=== PATIENT | female | born 1975 | race Caucasian/White ===

== ENCOUNTER → 2018-03-29 12:56 | Outpatient (CLI) | payer BC, SELFPAY ==
[2018-04-02 10:20] LABS: HPV Reflexed? NOT INDICATED
== END ==
PROVIDERS: Visit Provider Obstetrics & Gynecology
DX: Z12.4 Encounter for screening for malignant neoplasm of cervix (principal)
CPT/HCPCS: 88175; G0145

== ENCOUNTER → 2018-04-03 13:51 | Outpatient (CLI) | payer BC, SELFPAY ==
--- NOTE | 2018-04-03 13:59 | BI_ITS ---
MAMMOGRAPHY - BILATERAL DIAGNOSTIC REASON FOR EXAM: Female, 43 years old. 2-3 week history of left breast lump. PERTINENT HISTORY: Non-contributory. TECHNIQUE: Digital bilateral breast esmer (3D mammographic acquisition) in the CC and MLO projections. 2-D mediolateral oblique (MLO) and craniocaudad (CC) views of both breasts were obtained. CAD: Full Field Digital Mammography with Computer Added Detection was performed. COMPARISON: None. Baseline examination. FINDINGS: Breast Composition: The breasts are heterogeneously dense, which may obscure small masses. There are no dominant masses or suspicious calcifications. Scattered benign-appearing bilateral calcifications. No other significant abnormalities are identified. BI/DIAG MAMM W/CAD, BILAT IMPRESSION: Negative diagnostic mammogram. With the patient's history of a palpable abnormality in the deep inferior medial portion of the left breast, correlation with ultrasound is recommended. ASSESSMENT CATEGORY: BIRADS Category 0: Incomplete. Need additional imaging evaluation. A letter regarding these results will be sent to the patient by the facility within 30 days. Approximately 10% of breast cancers are not detected by mammography. A normal mammogram should not delay biopsy of a clinically suspicious abnormality. Electronically Signed: Gus Stevens MD at 8:17 EDT Tel [phone], Service support ,
--- NOTE | 2018-04-03 13:59 | US_ITS ---
STUDY: ULTRASOUND BREAST - LEFT REASON FOR EXAM: Female, 43 years old. Palpable abnormality in the left breast. TECHNIQUE: Axial and longitudinal images of the LEFT breast were performed with a high resolution ultrasound transducer. COMPARISON: Comparison is made with prior mammogram done earlier in the day. FINDINGS: LEFT Breast: The inferior medial quadrant of the left breast was examined by ultrasound. There is a homogeneous fibro-glandular tissue. No sonographic abnormality is seen. US/Breast Limited Unilateral IMPRESSION: Unremarkable sonographic examination. ASSESSMENT CATEGORY: BIRADS Category 1: Negative. A letter regarding these results will be sent to the patient by the facility within 30 days. Electronically Signed: Gus Stevens MD at 7:57 EDT Tel [phone], Service support ,
== END ==
PROVIDERS: Family Provider Family Medicine; PCP Family Medicine; Visit Provider Obstetrics & Gynecology
DX: N63.20 Unspecified lump in the left breast, unspecified quadrant (principal)
CPT/HCPCS: 76642; 77062; 77066; G0279

== ENCOUNTER → 2019-06-28 15:34 | Outpatient (CLI) | payer BC, SELFPAY ==
--- NOTE | 2019-06-28 15:36 | BI_ITS ---
BILATERAL DIGITAL MAMMOGRAM WITH TOMOSYNTHESIS: Mediolateraloblique and craniocaudal views demonstrate no evidence of dominant parenchymal masses. No cluster of microcalcifications or architectural distortion is seen. No evidence of skin thickening is seen. No comparison images are available. Breast Density: The breast tissue is extremely dense which may lower the sensitivity of mammography. CAD was used to assist in final assessment. IMPRESSION: NORMAL MAMMOGRAM BILATERALLY. FINAL ASSESSMENT: BIRAD 1 (NEGATIVE) YEARLY MAMMOGRAM RECOMMENDED Approximately 10% of breast cancers are not detected by mammography. A normal mammogram should not delay biopsy of a clinically suspicious abnormality. Electronically Signed: Mark Gallo, at 20:10 EDT Tel , Service support , BI/SCREEN MAMM (CAD) W/LIBORIO PRICE
== END ==
PROVIDERS: Family Provider Internal Medicine; PCP Internal Medicine; Referring Provider Obstetrics & Gynecology; Visit Provider Obstetrics & Gynecology
DX: Z12.31 Encounter for screening mammogram for malignant neoplasm of breast (principal)
CPT/HCPCS: 77063; 77067

== ENCOUNTER 2020-06-28 17:05 | Emergency (ER) | payer BC, SELFPAY ==
[2020-06-28 17:06] VITALS: BP 135/100; PULSE 58; RESP 20; TEMP 36.1; O2SAT 100; BMI 23.8
--- NOTE | 2020-06-28 17:22 | CT_ITS ---
STUDY: CT ABDOMEN AND PELVIS WITHOUT CONTRAST REASON FOR EXAM: Female, 45 years old. ABD PAIN RADIATION DOSAGE (If Supplied By Facility): CTDIvol = ( 6.23 ) mGy, DLP = ( 279.95 ) mGycm TECHNIQUE: Transaxial images were obtained from the dome of the diaphragm to the symphysis pubis without oral contrast, and without intravenous contrast. Sagittal and coronal images were reconstructed. Individualized dose optimization techniques were used for this CT. COMPARISON: None. FINDINGS: The visualized lung bases are unremarkable. The visualized portions of the heart are within normal limits. Normal liver. Normal gallbladder and extrahepatic biliary system. Normal spleen. Normal pancreas. Normal bilateral adrenal glands. Normal right kidney. Normal left kidney. Normal visualized stomach. Normal small intestine. Normal colon. The appendix is visualized and appears normal. Normal abdominal aorta. Normal inferior vena cava. Normal retroperitoneum. Normal urinary bladder. IUD in the uterus. Normal abdominal wall. Mild scoliosis. CT/Abdomen/Pelvis without Cont IMPRESSION: IUD in the uterus. No sign of bowel obstruction. Electronically Signed: Poli Barbosa DO at 18:27 EDT Tel [phone], Service support ,
--- NOTE | 2020-06-28 17:24 | ED.VIS.GEN ---
History of Present Illness Chief Complaint: Abd Pain Informant: Patient Narrative: Patient presents with right-sided abdominal pain that started about 3 hours ago quite rapidly, she has paroxysms of sharp stabbing pain followed by times where she is relatively comfortable, she cannot still still and is pacing around the room. She denies flank pain. She has no urinary symptoms. She denies . She denies fever chills cough or congestion. Past Medical History - Allergies and Home Meds Allergies/Adverse Reactions: Allergies No Known Allergies Allergy (Verified 07/23/13 18:56) Primary Care Physician: Prema Larsen MD [Primary Care Provider] - Past Medical History: None Smoking Status: Never smoker Review of Systems General: Denies: Fever Cardiovascular: Denies: Chest pain, Palpitations Respiratory: Denies: Dyspnea, Cough Gastrointestinal: Reports: Abdominal pain, Nausea. Denies: Vomiting, Diarrhea Genitourinary: Denies: Dysuria Musculoskeletal: Denies: Myalgias Skin: Denies: Rash, Abscess Neurological: Denies: Headache, Weakness Psych: Denies: Depression Endocrine: Denies: Polyuria Hematologic: Denies: Easy bruising Allergy: Denies: Uticaria Physical Exam Vital Signs/Narrative: Vital Signs Temp Pulse Resp BP Pulse Ox 06/28/20 17:06 97.0 F L 58 L 20 H 135/100 H 100 General: - - Patient is pacing around the room she does appear in distress ENT: Moist mucous membranes Neck: Supple Cardiovascular: Regular rate, Regular rhythm Respiratory: No distress, CTA bilaterally, - - There is right-sided abdominal pain, the pain is diffuse over the right abdomen, it is not specifically at McBurney's there is no guarding or rebound there is no CVA tenderness there is no upper abdominal pain and no left-sided abdominal pain Abdomen: Soft Back: Nontender, Normal Inspection. Negative for: CVA tenderness Extremities: Nontender, No edema Skin: Normal color Neurological: Alert, Normal Strength, Normal Sensation Diagnostic/Tx/Re-eval - Medical Decision Making Work-up she significantly improved I do not know the etiology of her symptoms but her symptoms only started a few hours prior to arrival she may need a repeat evaluation in the morning I did tell her to come back to the emergency department since she does not have a PCP. I will refer her to his PCP. If she has fever chills worsening pain or changing pain she is to return both and her are aware of this and agree. ED Disposition - Plan for ED Patient: Disposition: Home or Assisted Living Diagnosis: Abdominal pain Instructions: ED Abdominal Pain Unkn Cause Fem Prescriptions: Dicyclomine HCl [Bentyl] 20 mg PO TIDAC #20 cap Prescription Printed Hydrocodone Bitart/Apap 5-325 [[place] 5MG-325MG] 1 tab PO Q4H PRN PRN 2 Days #10 tab PRN Reason: Pain Prescription Printed Ondansetron [Zofran Odt] 4 mg PO Q8H PRN PRN #10 tab PRN Reason: Nausea Prescription Printed Referrals: Prema Larsen MD [Primary Care Provider] - 3-5 Days
[2020-06-28] MEDS: Ondansetron 4 MG/2 ML Vial IV (17:32)
[2020-06-28 17:34] LABS: Absolute Lymphocyte Count 3.74 X10^3/uL (0.83-4.51); Absolute Neutrophil Count 5.7 X10^3/uL (2.0-7.7); Basophil# 0.05 X10^3/uL; Basophil% 0.5 % (0-1); Eosinophil# 0.32 X10^3/uL; Hematocrit 43.5 % (37-47); Hemoglobin 14.5 g/dL (12.0-15.0); Lymphocyte # 3.74 X10^3/ul (4.0); Lymphocyte % 34.8 % (19-41); Mean Corp Hgb Conc 33.3 g/dL (32-36); Mean Corpuscular Hgb 31.2 pg (27.0-32.0); Mean Corpuscular Volume 93.5 fL (81-99); Mean Platelet Vol. 9.6 fl (6.2-12.0); Monocyte# 0.88 X10^3/uL; Monocyte% 8.2 % (0-10); NRBC Flagged by Analyzer 0 % (0-5); Neutrophil % 52.9 % (47-70); Platelet Count 270 K/mm3 (150-450); RBC Distribution Width CV 11.9 % (11.6-14.6); RBC Distribution Width SD 41.1 fl (35.1-43.9); Red Blood Count 4.65 M/mm3 (4.2-5.4); White Blood Count 10.8 K/mm3 (4.4-11.0)
[2020-06-28] MEDS: HYDROmorphone 1 MG/ML Syringe IV (17:35)
[2020-06-28 17:50] LABS: ALB/GLOB Ratio 1.1 RATIO (0.9-2.4); AST(SGOT) 24 U/L (15-37); Alanine Aminotransfer ALT/SGPT 29 U/L (13-56); Albumin, Serum 4.1 g/dL (3.2-5.0); Alkaline Phosphatase 88 U/L (45-117); Anion Gap 7 (5-15); BUN 12 mg/dL (7-18); BUN/Creat Ratio 11.8 RATIO (10-20); Calcium,Total 9.4 mg/dL (8.5-10.1); Chloride 106 mmol/L (98-107); Creatinine, Serum 1.02 mg/dL (0.55-1.02); EST Glomerular Filtration Rate 63 mL/min (>60); Est Glom Filt Rate - Afr Amer 76 mL/min (>60); Estimated Creatinine Clearance 56.25 ml/min; Globulin 3.9 g/dL (2.2-4.2); Glucose 115 mg/dL (74-106); Lipase 151 U/L (73-393); Potassium 3.9 mmol/L (3.5-5.1); Sodium Level 138 mmol/L (136-145)
[2020-06-28 19:25] LABS: Mucous, Urine 0 SEEN /hpf (<or=2+); Red Blood Cells-Urine 0 SEEN /hpf (0-5); White Blood Cells 0 SEEN /hpf (0-5)
[2020-06-28 19:28] LABS: Color, Urine Yellow (Yellow); Glucose, Dipstick Normal (Normal); Ketone-Dipstick 15 mg/dl (Negative); Leukocyte Esterase-Dipstick Negative /ul (Negative); Nitrite-Dipstick Negative (Negative); Occult Blood-Urine Negative /ul (Negative); Protein-Dipstick Negative (Negative); Urine Bilirubin Dipstick Negative (Negative); Urine Clarity Clear (Clear); Urine Urobilinogen Normal (Normal)
[2020-06-28 19:42] LABS: Bacteria RARE /hpf (None Seen); Squamous Epithelial Cells - UA 0-5 SEEN /hpf (5-10)
[2020-06-28] MEDS: Dicyclomine 20 MG/2 ML Vial IM (20:58)
[2020-06-28 21:30] VITALS: BP 129/68; PULSE 60; RESP 15; O2SAT 100
== END 2020-06-28 21:31 | disposition home or self-care (01) ==
PROVIDERS: Emergency Provider Emergency Medicine; PCP Internal Medicine
DX: R10.9 Unspecified abdominal pain (principal)
CPT/HCPCS: 74176; 80053; 81001; 83690; 85025; 96372; 96374; 96375; 99283; J7030; A4216; J2405

== ENCOUNTER → 2020-08-27 13:46 | Outpatient (CLI) | payer BC, SELFPAY ==
[2020-09-01 13:19] LABS: HPV Reflexed? NOT INDICATED
== END ==
PROVIDERS: PCP Internal Medicine; Visit Provider Obstetrics & Gynecology
DX: Z12.4 Encounter for screening for malignant neoplasm of cervix (principal)
CPT/HCPCS: 88175; G0145

== ENCOUNTER → 2020-10-16 10:03 | Outpatient (CLI) | payer BC, SELFPAY ==
--- NOTE | 2020-10-16 10:05 | BI_ITS ---
MAMMOGRAPHY - BILATERAL SCREENING REASON FOR EXAM: Female, 45 years old. Routine annual screening examination. PERTINENT HISTORY: Non-contributory. TECHNIQUE: Digital bilateral breast liborio (3D mammographic acquisition) in the CC and MLO projections. 2-D mediolateral oblique (MLO) and craniocaudad (CC) views of both breasts were obtained. CAD: Full Field Digital Mammography with Computer Added Detection was performed. COMPARISON: Comparison is made with prior study dated 06/28/2019 and 04/03/2018. FINDINGS: Breast Composition: The breasts are heterogeneously dense, which may obscure small masses. There are no dominant masses or suspicious calcifications. No other significant abnormalities are identified. There has been no significant change since the prior study. BI/SCRN MAMM (CAD)W/LIBORIO BILAT IMPRESSION: Stable bilateral screening mammogram. Yearly follow-up mammogram recommended. (A) ASSESSMENT CATEGORY: BIRADS Category 1: Negative. A letter regarding these results will be sent to the patient by the facility within 30 days. Approximately 10% of breast cancers are not detected by mammography. A normal mammogram should not delay biopsy of a clinically suspicious abnormality. [id number] Electronically Signed: Gus Stevens MD at 11:07 EST , Service support ,
== END ==
PROVIDERS: PCP Internal Medicine; Referring Provider Obstetrics & Gynecology; Visit Provider Obstetrics & Gynecology
DX: Z12.31 Encounter for screening mammogram for malignant neoplasm of breast (principal)
CPT/HCPCS: 77063; 77067

== ENCOUNTER 2021-12-14 12:39 | Outpatient (CLI) | payer BC, SELFPAY ==
--- NOTE | 2021-12-14 12:41 | BI_ITS ---
MAMMOGRAPHY - BILATERAL SCREENING REASON FOR EXAM: Female, 46 years old. Routine annual screening examination. PERTINENT HISTORY: Non-contributory. TECHNIQUE: Digital bilateral breast liborio (3D mammographic acquisition) in the CC and MLO projections. 2-D mediolateral oblique (MLO) and craniocaudad (CC) views of both breasts were obtained. CAD: Full Field Digital Mammography with Computer Added Detection was performed. COMPARISON: Comparison is made with prior study dated 10/16/2020 and 06/28/2019. FINDINGS: Breast Composition: The breasts are heterogeneously dense, which may obscure small masses. There are no dominant masses or suspicious calcifications. Stable small benign-appearing bilateral axillary lymph nodes. No other significant abnormalities are identified. There has been no significant change since the prior study. BI/SCRN MAMM (CAD)W/LIBORIO BILAT IMPRESSION: Stable bilateral screening mammogram. Yearly follow-up mammogram recommended. (A) ASSESSMENT CATEGORY: BIRADS Category 2: Benign. A letter regarding these results will be sent to the patient by the facility within 30 days. Approximately 10% of breast cancers are not detected by mammography. A normal mammogram should not delay biopsy of a clinically suspicious abnormality. [id number] Electronically Signed: Gus Stevens MD at 14:08 EDT ,
== END 2021-12-14 23:59 | disposition home or self-care (01) ==
LOC: OPBI 12:39
PROVIDERS: PCP Internal Medicine; Visit Provider Obstetrics & Gynecology
DX: Z12.31 Encounter for screening mammogram for malignant neoplasm of breast (principal)
CPT/HCPCS: 77063; 77067

== ENCOUNTER 2021-12-23 15:17 | Outpatient (CLI) | payer BC, SELFPAY ==
[2021-12-26 09:08] LABS: Chlamydia By Nucleic Acid AMP Negative (Negative)
[2021-12-26 10:20] LABS: Gonococcus By Nucleic Acid AMP Negative (Negative)
[2021-12-29 16:45] LABS: HPV Reflexed? NOT INDICATED
== END 2021-12-23 23:59 | disposition home or self-care (01) ==
LOC: WOBLAB 15:18
PROVIDERS: PCP Internal Medicine; Visit Provider Obstetrics & Gynecology
DX: Z12.4 Encounter for screening for malignant neoplasm of cervix (principal); Z11.3 Encounter for screening for infections with a predominantly sexual mode of transmission
CPT/HCPCS: 87491; 87591; 88175; G0145

== ENCOUNTER 2022-05-22 09:13 | Emergency (ER) | payer BC, SELFPAY ==
[2022-05-22 09:14] VITALS: BP 131/85; PULSE 94; RESP 22; TEMP 37.2; O2SAT 100; BMI 24.5
--- NOTE | 2022-05-22 09:47 | CT_ITS ---
STUDY: CT SOFT TISSUE NECK WITH CONTRAST REASON FOR EXAM: Female, 47 years old. swollen submental area. recent travel to [place] RADIATION DOSAGE (If Supplied By Facility): CTDIvol = ( 16.81 ) mGy, DLP = ( 508.32 ) mGycm TECHNIQUE: The patient was scanned in a multi-detector CT scanner. High resolution transaxial imaging was performed following intravenous administration of IV 75mL Isovue-370. Sagittal and coronal images were reconstructed. Individualized dose optimization techniques were used for this CT. COMPARISON: None. FINDINGS: Normal bilateral parotid glands. Normal bilateral trench pipe layer helper spaces. Normal bilateral parapharyngeal spaces. Normal bilateral carotid spaces. Normal bilateral sublingual and submandibular glands and spaces. Normal visualized nasopharynx. Normal retropharyngeal space. Normal perivertebral space. Normal visualized bilateral faucial tonsils. The visualized tongue, tongue base and oropharynx are normal. The visualized cervical lymph nodes (levels I-) are within normal size limits, and maintain normal morphology. There is no demonstrated solid or cystic mass lesion. There is no abnormal contrast enhancement. Normal epiglottis, bilateral vallecula and hypopharynx. The pre-epiglottic and paraglottic adipose spaces are normal. Normal visualized bilateral piriform sinuses, aryepiglottic folds, vocal cords, and arytenoid-cricoid articulations. Normal subglottic trachea. Normal bilateral lobes of the thyroid gland. Normal visualized pulmonary apices. Normal visualized paranasal sinuses. Normal visualized cervical spine. CT/Soft Tissue Neck WITH Contrast IMPRESSION: Normal enhanced CT examination of the soft tissues of the neck. Electronically Signed: Hiro Cantu MD at 11:15 EDT ,
--- NOTE | 2022-05-22 09:49 | EDS_ITS ---
HPI History of Present Illness Chief Complaint: Other, Pain/Inj Informant: patient and spouse/S.O. Onset/Context/Timing Onset: Days Context: Gradual Onset Timing: Continuous Current Severity: Mild Maximum Severity: Mild Narrative Narrative: 47-year-old female no sniffing past medical history. Her and her significant other were vacationing in [place] this past week. They have been swimming. She developed earaches. A pharmacy in [place] gave her eardrops to use which improved her ears. Today she woke up with subjective swelling to the submental region of her neck and discomfort. She is able to swallow. She is also had some nausea and vomiting. No fever. No trouble breathing. Prior similar symptoms: No Recent Illness/Hospitalization: No PFSH PFSH Medical History no medical history no medical history Home Medications amoxicillin 500 mg capsule 500 mg PO TID 7 days #21 caps 05/22/22 [Rx Last Taken Unknown] ondansetron 4 mg disintegrating tablet 4 mg PO Q4H 3 days #10 tabs 05/22/22 [Rx Last Taken Unknown] Allergy/AdvReac Type Severity Reaction Status Date / Time No Known Allergies Allergy Verified 05/22/22 09:14 Surgical History no surgical history Social History Smoking Status: Former smoker ROS ROS ED ROS Narrative Earaches. Nausea and vomiting. Subjective neck swelling. Review of Systems ROS Unobtainable: Denies due to encephalopathy Constitutional Constitutional ED: Denies fever(s) Eyes Eyes: Denies blurry vision ENT ENT ED: Reports ear pain; Denies rhinorrhea Cardiovascular Cardiovascular: Denies chest pain Respiratory/Chest Respiratory/Chest: Denies cough or dyspnea Gastrointestinal Gastrointestinal: Reports nausea and vomiting; Denies abdominal pain, constip ation, diarrhea or melena Genitourinary Genitourinary ED: Denies dysuria or hematuria Musculoskeletal Musculoskeletal: Denies arthralgias Integumentary Denies abscess Neurologic Neurologic: Denies headache(s) Psychiatric Psychiatric: Denies anxiety Endocrine Endocrinology: Denies cold intolerance Hematologic/Lymphatic Hematologic/Lymphatic: Reports none Allergic/Immunologic Allergic/Immunologic ED: Denies mouth swelling, tongue swelling or urticaria EXAM Physical Exam Narrative Exam Narrative: 47-year-old female no acute distress. Vital signs stable afebrile. Pulse ox 9% on room air no signs hypoxia. H EENT exam right TM normal. Left TM mildly erythematous. Posterior pharynx normal. Tongue normal. Submental region nontender nonswollen. Neck there are some fullness in the submental region. No lymphadenopathy. No meningismus. Lungs are clear. Heart regular rhythm. Abdomen soft nontender. Moving all 4 extremities. Neurologically she is awake and alert. She is emotionally upset at times tearful. Const Vital Signs: 05/22/22 09:14 05/22/22 09:21 05/22/22 10:33 Temperature 98.9 F 97.8 F Temperature Source Temporal Temporal Pulse Rate 94 75 Respiratory Rate 22 H 24 H Respiratory Effort Normal Respiratory Pattern Tachypnea Blood Pressure 131/85 H 173/103 H Blood Pressure Mean 100 126 Pulse Ox 100 100 Oxygen Delivery Method Room Air Room Air 05/22/22 10:33 05/22/22 11:03 05/22/22 11:03 Temperature 97.8 F 97.9 F Temperature Source Temporal Temporal Pulse Rate 75 85 94 Respiratory Rate 24 H 18 18 Respiratory Effort Respiratory Pattern Blood Pressure 173/103 H 159/111 H 159/111 H Blood Pressure Mean 126 127 127 Pulse Ox 100 99 99 Oxygen Delivery Method Room Air Room Air Room Air 05/22/22 12:00 05/22/22 12:00 05/22/22 13:30 Temperature 97.6 F L 97.6 F L Temperature Source Oral Oral Pulse Rate 89 91 102 H Respiratory Rate 18 18 23 H Respiratory Effort Respiratory Pattern Blood Pressure 160/102 H 160/102 H 156/116 H Blood Pressure Mean 121 121 129 Pulse Ox 98 98 98 Oxygen Delivery Method Room Air Room Air Room Air 05/22/22 13:30 Temperature 97.6 F L Temperature Source Oral Pulse Rate 102 H Respiratory Rate 23 H Respiratory Effort Respiratory Pattern Blood Pressure 156/116 H Blood Pressure Mean 129 Pulse Ox 98 Oxygen Delivery Method Room Air Positive well nourished and well developed; Negative for obese, cachectic, contractures or unkempt General Appearance ED: well developed and NAD; Negative for unkempt, cachectic, contractures, cyanotic or diaphoretic Nutritional Appearance: Negative for cachectic or obese HEENT Reports moist mucous membranes; Denies dry mucous membranes Negative for trauma or tenderness Mouth ED: No dry mucous membranes Mouth: No dry mucous membranes Eyes PERRL and EOMs intact bilaterally General Eye ED: Negative for pale conjunctiva or scleral icterus Neck no lymphadenopathy, supple and no JVD Neck Narrative: Fullness submental region. No lymphadenopathy. Able to swallow without any difficulty. No drooling. No stridor. General: Negative for tenderness Lymph Lymphatic: Negative for other Chest Wall inspection of chest normal and palpation of chest normal Resp normal respiratory effort and clear to auscultation bilaterally Effort and Inspection: Negative for retractions Auscultation: Negative for rales, rhonchi or wheezes Cardio regular rate, regular rhythm, S1 normal heart sound, S2 normal heart sound and no murmurs Palpation: Negative for palpable S3 Rate: Negative for bradycardia Rhythm: Negative for abnormal rhythm GI normal to inspection, nondistended, normoactive bowel sounds, non-tender, non- distended and no masses Inspection: Negative for abdominal distention Auscultation: normoactive bowel sounds Palpation: soft; Negative for tender or guarding Back/Spine no CVA tenderness General Back: Negative for CVA tenderness Cervical Spine: Negative for cervical spine tenderness Thoracic Spine / Upper Back: Negative for thoracic spinal tenderness Lumbar Spine / Lower Back: Negative for lumbar spinal tenderness Extremity normal to inspection General Extremety ED: Negative for edema or tenderness General Extremity: Negative for edema Neuro oriented x3 and CN's II-XII intact bilaterally Sensorium / Orientation: alert; Negative for orientation impaired, lethargic or stuporous Motor Exam: strength 5/5 throughout Psych mental status grossly normal Appearance: Negative for unkempt Attitude: No agitated Mood & Affect: tearful; Negative for depressed or anxious Skin no rashes or lesions noted and no wounds Lesions: No lesion noted Rashes: No rashes noted Trauma: Negative for abrasion Wounds: Negative for wounds noted MDM MDM MDM Narrative Medical decision making narrative: [id number] complaining of fullness to her neck. Screening labs and a CT soft tissue neck are being obtained. Mild erythema to the left otitis membrane. Rates unremarkable. No trouble swallowing or breathing. She will also be treated with some pain medication and Zofran for nausea. Multiple repeat exams patient is doing well. I went over her test results with her. She will follow-up to get a repeat blood count to the elevated white count and also the thrombocytopenia. She will be started on amoxicillin 500 3 times daily for 7 days for left otitis media. Return if feeling worse. Lab Data Attestation: I reviewed the patient's lab results. Lab results narrative: Chemistries unremarkable gap 11. BUN of 26 creatinine mildly elevated 1.35. Glucose 199. CBC shows a white count of 21.9. H&H of 16.7 47.4. Platelet count is only 20,000. CAT scan of brain shows no acute abnormality as read by the radiologist. Reviewed by me. Labs: Laboratory Results - last 24 hr 05/22/22 05/22/22 10:00 10:00 WBC 21.9 H RBC 5.39 Hgb 16.7 H Hct 47.4 H MCV 87.9 MCH 31.0 MCHC 35.2 RDW Std Deviation 38.3 RDW Coeff of [place] 12.0 Plt Count 20 L* MPV 12.5 H Immature Gran % (Auto) 2.200 H Neut % (Auto) 83.0 H Lymph % (Auto) 4.8 L [place] % (Auto) 9.5 Eos % (Auto) 0.0 Baso % (Auto) 0.5 Absolute Neuts (auto) 18.2 H Absolute Lymphs (auto) 1.06 Nucleated RBC % 0 Diff Path Review May foll Platelet Estimate MKD DEC Sodium 136 Potassium 4.5 Chloride 103 Carbon Dioxide 22.0 Anion Gap 11 BUN 26 H Creatinine 1.35 H Estim Creat Clear Calc 39.71 Est GFR (MDRD) Af Amer 55 L Est GFR (MDRD) Non-Af 45 L BUN/Creatinine Ratio 19.3 Glucose 199 H Calcium 10.4 H Radiography Diagnostic Testing: Clinical Impression(s) from Imaging Studies Soft Tissue Neck CT 05/22/22 09:47 IMPRESSION: Normal enhanced CT examination of the soft tissues of the neck. Electronically Signed: Hiro Cantu MD at 11:15 EDT Reading Location ID and State: [id number] / [employer] Tel , Service support , Brain CT 05/22/22 12:24 IMPRESSION: Normal unenhanced CT scan of the brain. Electronically Signed: Hiro Cantu MD at 13:00 EDT Reading Location ID and State: [id number] / [employer] Tel , Service support , Discharge Plan Triage Chief Complaint: Other, Pain/Inj ED Provider: Victorino Colon Dx/Rx/DC Orders Clinical Impression: Otitis media, Nausea & vomiting, Headache, Thrombocytopenia Instructions: Thrombocytopenia, ED Otitis Media Antibiotic ..., ED Vomiting (Adult) Prescriptions: New amoxicillin 500 mg capsule 500 mg PO TID 7 Days Qty: 21 0RF ondansetron 4 mg tablet,disintegrating 4 mg PO Q4H 3 Days Qty: 10 0RF Rx Instructions: 1st dose 1-2 hr before radiation Primary Care Provider: Prema Larsen Referrals: Prema Larsen MD [Primary Care Provider] - As soon as possible Activity Restrictions/Additional Instructions: Tylenol and Motrin for pain. Plenty of fluids and rest. Increase diet and activity as tolerated. Amoxicillin 3 times a day for 10 days for your left ear infection. Your platelet count was low today at 20,000. That needs to be rechecked in 1 to 2 weeks to ensure that its improving. Follow-up with your primary care physician in [place] and redo another blood count. Disposition Disposition: Home, Self Care
[2022-05-22 10:10] LABS: Absolute Lymphocyte Count 1.06 X10^3/uL (0.83-4.51); Absolute Neutrophil Count 18.2 X10^3/uL (2.0-7.7); Basophil# 0.11 X10^3/uL; Basophil% 0.5 % (0-1); Eosinophil# 0.01 X10^3/uL; Hematocrit 47.4 % (37-47); Hemoglobin 16.7 g/dL (12.0-15.0); Lymphocyte # 1.06 X10^3/ul (0.83-4.51); Lymphocyte % 4.8 % (19-41); Mean Corp Hgb Conc 35.2 g/dL (32-36); Mean Corpuscular Volume 87.9 fL (81-99); Mean Platelet Vol. 12.5 fl (6.2-12.0); Monocyte# 2.09 X10^3/uL; Monocyte% 9.5 % (0-10); NRBC Flagged by Analyzer 0 % (0-5); Neutrophil # 18.17 X10^3/uL (2.7-7.7); POSITIVE COUNT YES; POSITIVE DIFFERENTIAL YES; Platelet Count 20 K/mm3 (150-450); RBC Distribution Width SD 38.3 fl (35.1-43.9); Red Blood Count 5.39 M/mm3 (4.2-5.4); White Blood Count 21.9 K/mm3 (4.4-11.0)
[2022-05-22] MEDS: 0.9% Normal Saline 1,000 ML 999 ML IV (10:10)
[2022-05-22] MEDS: Ketorolac 30 MG/ML Syringe IV (10:10)
[2022-05-22] MEDS: Ondansetron 4 MG/2 ML Vial IV ×2 (10:10→11:34)
[2022-05-22] MEDS: morphine 8 MG/ML Syringe 6 MG IV (10:10)
[2022-05-22 10:22] LABS: Anion Gap 11 (5-15); BUN 26 mg/dL (7-18); BUN/Creat Ratio 19.3 RATIO (10-20); Calcium,Total 10.4 mg/dL (8.5-10.1); Chloride 103 mmol/L (98-107); Creatinine, Serum 1.35 mg/dL (0.55-1.02); EST Glomerular Filtration Rate 45 mL/min (>60); Est Glom Filt Rate - Afr Amer 55 mL/min (>60); Estimated Creatinine Clearance 39.71 ml/min; Glucose 199 mg/dL (74-106); Potassium 4.5 mmol/L (3.5-5.1); Sodium Level 136 mmol/L (136-145)
[2022-05-22 10:33] VITALS: BP 173/103; PULSE 75; RESP 24; TEMP 36.6; O2SAT 100
[2022-05-22 10:42] LABS: Platelet Estimate MKD DEC (ADEQ)
[2022-05-22 11:03] VITALS: BP 159/111; PULSE 85; PULSE 94; RESP 18; TEMP 36.6; O2SAT 99
[2022-05-22 12:00] VITALS: BP 160/102; PULSE 89; PULSE 91; RESP 18; TEMP 36.4; O2SAT 98
--- NOTE | 2022-05-22 12:24 | CT_ITS ---
STUDY: CT BRAIN WITHOUT CONTRAST REASON FOR EXAM: Female, 47 years old. headache RADIATION DOSAGE (If Supplied By Facility): CTDIvol = ( 44.99 ) mGy, DLP = ( 829.85 ) mGycm TECHNIQUE: Transaxial CT imaging of the brain was performed without administration of intravenous contrast material. Individualized dose optimization techniques were used for this CT. COMPARISON: No relevant priors. FINDINGS: Normal soft tissue structures. Normal calvarium. Normal size ventricles and extra-axial spaces for the patient''s age. Normal white matter tracts of the cerebral hemispheres. Normal basal ganglia and thalami. Normal brainstem. Normal cerebellum. There is no intracranial hemorrhage. There are no findings of an acute ischemic infarction. Normal visualized paranasal sinuses. CT/Brain/Head without Contrast IMPRESSION: Normal unenhanced CT scan of the brain. Electronically Signed: Hiro Cantu MD at 13:00 EDT ,
[2022-05-22 13:30] VITALS: BP 156/116; PULSE 102; RESP 23; TEMP 36.4; O2SAT 98
[2022-05-22] MEDS: AMOXICILLIN 500 MG CAPSULE PO (13:54)
[2022-05-24 08:54] LABS: Pathologist Review Reviewed
== END 2022-05-22 13:55 | disposition home or self-care (01) ==
PROVIDERS: Emergency Provider Emergency Medicine; PCP Internal Medicine; Visit Provider Emergency Medicine
DX: H66.92 Otitis media, unspecified, left ear (principal); D69.6 Thrombocytopenia, unspecified; Z87.891 Personal history of nicotine dependence; R11.2 Nausea with vomiting, unspecified
CPT/HCPCS: 70450; 70491; 80048; 85025; 96361; 96374; 96375; 96376; 99283; J7030; Q9967; J2405

== ENCOUNTER → 2023-01-12 | Outpatient (CLI) | payer BC, SELFPAY ==
--- NOTE | 2023-01-12 10:25 | BI_ITS ---
MAMMOGRAPHY - BILATERAL SCREENING REASON FOR EXAM: Female, 47 years old. Routine annual screening examination. PERTINENT HISTORY: Non-contributory. TECHNIQUE: Digital bilateral breast liborio (3D mammographic acquisition) in the CC and MLO projections. 2-D mediolateral oblique (MLO) and craniocaudad (CC) views of both breasts were obtained. CAD: Full Field Digital Mammography with Computer Added Detection was performed. COMPARISON: Comparison is made with prior study dated December 14, 2021 and October 16, 2020. FINDINGS: Breast Composition: The breasts are extremely dense, which lowers the sensitivity of mammography. There are no dominant masses or suspicious calcifications. No other significant abnormalities are identified. There has been no significant change since the prior study. BI/SCRN MAMM (CAD)W/LIBORIO BILAT IMPRESSION: Stable bilateral screening mammogram. Yearly follow-up mammogram recommended. (A) ASSESSMENT CATEGORY: BIRADS Category 1: Negative. A letter regarding these results will be sent to the patient by the facility within 30 days. Approximately 10% of breast cancers are not detected by mammography. A normal mammogram should not delay biopsy of a clinically suspicious abnormality. [id number] Electronically Signed: Gus Stevens MD at 12:19 EDT ,
== END | disposition home or self-care (01) ==
LOC: OPBI 10:24
PROVIDERS: PCP Internal Medicine; Referring Provider Internal Medicine; Visit Provider Internal Medicine
DX: Z12.31 Encounter for screening mammogram for malignant neoplasm of breast (principal)
CPT/HCPCS: 77063; 77067

== ENCOUNTER → 2023-07-04 | Outpatient (CLI) | payer BC, SELFPAY ==
[2023-07-08 12:08] LABS: HPV APTIMA, High Risk Negative (Negative)
== END | disposition home or self-care (01) ==
LOC: LABSPEC 15:56
PROVIDERS: PCP Internal Medicine; Referring Provider Nurse Practitioner Women's Health; Visit Provider Nurse Practitioner Women's Health
DX: Z12.4 Encounter for screening for malignant neoplasm of cervix (principal)
CPT/HCPCS: 87624; 88175; G0145

== ENCOUNTER → 2024-01-15 | Outpatient (CLI) | payer OTHER, SELFPAY ==
--- NOTE | 2024-01-15 08:03 | BI_ITS ---
MAMMOGRAPHY - BILATERAL SCREENING REASON FOR EXAM: Female, 48 years old. Routine annual screening examination. PERTINENT HISTORY: Non-contributory. TECHNIQUE: Digital bilateral breast liborio (3D mammographic acquisition) in the CC and MLO projections. 2-D mediolateral oblique (MLO) and craniocaudad (CC) views of both breasts were obtained. CAD: Full Field Digital Mammography with Computer Added Detection was performed. COMPARISON: Comparison is made with prior study dated January 12, 2023 and December 14, 2021. FINDINGS: Breast Composition: The breasts are extremely dense, which lowers the sensitivity of mammography. There are no dominant masses or suspicious calcifications. No other significant abnormalities are identified. There has been no significant change since the prior study. BI/SCRN MAMM (CAD)W/LIBORIO BILAT IMPRESSION: Stable bilateral screening mammogram. Yearly follow-up mammogram recommended. (A) ASSESSMENT CATEGORY: BIRADS Category 1: Negative. A letter regarding these results will be sent to the patient by the facility within 30 days. Approximately 10% of breast cancers are not detected by mammography. A normal mammogram should not delay biopsy of a clinically suspicious abnormality. [id number] Electronically Signed: Gus Stevens MD at 10:10 EDT ,
== END | disposition home or self-care (01) ==
LOC: OPBI 08:03
PROVIDERS: PCP Internal Medicine; Referring Provider Internal Medicine; Visit Provider Internal Medicine
DX: Z12.31 Encounter for screening mammogram for malignant neoplasm of breast (principal)
CPT/HCPCS: 77063; 77067

== ENCOUNTER → 2025-01-31 | Outpatient (CLI) | payer OTHER, SELFPAY ==
--- NOTE | 2025-01-31 13:41 | BI_ITS ---
EXAM: SCRN MAMM (CAD)W/LIBORIO BILAT 01/31/2025 CLINICAL HISTORY: F, Age 49 y/o , SCREENING FOR BREAST CANCER TECHNIQUE: Bilateral screening digital breast tomosynthesis with 2D and 3D images. Computer aided detection. COMPARISON: Prior exam(s) dated 01/15/2024, 01/12/2023, 12/14/2021. FINDINGS: TISSUE DENSITY: The breast tissue is heterogenously dense, which may obscure small masses. The mammogram demonstrates that the patient has dense breasts. Supplemental screening with whole breast ultrasound or MRI may be considered for further evaluation. Bilateral Breast Mammographic Findings: No significant masses, calcifications or other abnormalities are identified. . BI/SCRN MAMM (CAD)W/LIBORIO BILAT IMPRESSION: Right Breast: BIRADS 1 NEGATIVE. Left Breast: BIRADS 1 NEGATIVE. OVERALL FINAL ASSESSMENT: BIRADS 1 NEGATIVE. RECOMMENDATION: Routine annual follow-up in 1 Year A letter with findings and recommendations will be mailed to the patient. Reading Location: [id number]
== END | disposition home or self-care (01) ==
LOC: OPBI 13:40
PROVIDERS: PCP Internal Medicine; Referring Provider Nurse Practitioner Women's Health; Visit Provider Nurse Practitioner Women's Health
DX: Z12.31 Encounter for screening mammogram for malignant neoplasm of breast (principal)
CPT/HCPCS: 77063; 77067